=== PATIENT | male | born 1995 | race Two or more races ===

== ENCOUNTER 2021-05-17 23:51 | Emergency (ER) | payer OTHER ==
[~2021-05-17] VITALS: Ht 167.6 cm; Wt 58.1 kg
--- NOTE | 2021-05-18 00:22 | NUR ---
BIBS C/O MID EPIGASTRIC PAIN X1 YEAR +VOMITTING HX OF GERD. PATIENT ALERT AND ORIENTED X3. AMBULATORY WITH NON LABORED BREATHING. PT IN A GOWN ON MONITOR AWAITING MD AWAN.
[2021-05-18] MEDS ORDERED: MAG HYDROX/AL HYDROX/SIMETH 30 ML UDC ONE (00:30)
[2021-05-18] MEDS ORDERED: ONDANSETRON HCL/PF 4 MG/2 ML VIAL IVP ONE (00:30)
[2021-05-18] MEDS ORDERED: ONDANSETRON HCL/PF 4 MG/2 ML VIAL ONE (00:30)
[2021-05-18] MEDS ORDERED: LIDOCAINE VISCOUS 2% UD 15 ML UDC MM ONE (00:30)
[2021-05-18] MEDS ORDERED: LIDOCAINE VISCOUS 2% UD 15 ML UDC ONE (00:30)
[2021-05-18] MEDS ORDERED: MAG HYDROX/AL HYDROX/SIMETH 30 ML UDC PO ONE (00:30)
[2021-05-18] MEDS ORDERED: IV NS 0.9% 1,000 ML BAG IV ONE (00:30)
--- NOTE | 2021-05-18 00:35 | NUR ---
URINE COLLECTED AND SENT TO LAB
--- NOTE | 2021-05-18 00:41 | NUR ---
LINE ESTABLISHED AND BLOOD COLLECTED AND SENT TO LAB
[2021-05-18 00:44] LABS: BASOPHILS # (AUTO) 0.1 K/uL (0.0-0.2); BASOPHILS % (AUTO) 0.9 % (0.0-2.0); EOSINOPHILS % (AUTO) 4.6 % (0.0-6.0); HEMATOCRIT 47 % (39-51); HEMOGLOBIN 15.7 g/dL (13.5-17.5); LYMPHOCYTES # (AUTO) 1.7 K/uL (0.8-4.8); MEAN CORPUSCULAR HGB CONC 33 g/dl (31.0-36.0); MEAN CORPUSCULAR VOLUME 87 fL (80-96); MONOCYTES # (AUTO) 0.5 K/uL (0.1-1.30); MONOCYTES % (AUTO) 8.5 % (2.0-12.0); NEUTROPHILS # (AUTO) 3.1 K/uL (1.8-8.9); PLATELET COUNT (AUTO) 153 K/uL (150-450); RED BLOOD CELL COUNT(AUTO) 5.42 MIL/uL (4.5-6.0); WHITE BLOOD COUNT (AUTO) 5.6 K/uL (4.3-11.0)
--- NOTE | 2021-05-18 00:50 | NUR ---
PT GOING TO CT.
--- NOTE | 2021-05-18 00:50 | NUR ---
PT TAKEN FOR CT SCAN
[2021-05-18 01:02] LABS: CALCIUM, SERUM 8.4 mg/dL (8.5-10.1); POTASSIUM 3.7 mmol/L (3.5-5.1)
[2021-05-18] MEDS ORDERED: ONDA4TAB5 PO (01:56)
[2021-05-18 02:25] LABS: BILIRUBIN,DIRECT 0.2 mg/dL (0.0-0.2)
[2021-05-18 02:26] LABS: ALBUMIN 3.8 g/dL (3.4-5.0); TOTAL PROTEIN, SERUM 7.2 g/dL (6.4-8.2)
--- NOTE | 2021-05-18 02:51 | NUR ---
Patient discharged to home in stable condition. Written and verbal after care instructions given. Patient verbalizes understanding of instruction.
--- NOTE | 2021-05-18 02:51 | NUR ---
IV removed. Catheter intact and site benign. Pressure and 4x4 applied to site. No bleeding noted.
[2021-05-18 02:52] VITALS: BP 111/65
== END 2021-05-18 02:53 | disposition home or self-care (01) ==
LOC: ER 23:58
DX: K52.9 Noninfective gastroenteritis and colitis, unspecified (principal); K21.9 Gastro-esophageal reflux disease without esophagitis; I88.0 Nonspecific mesenteric lymphadenitis
CPT/HCPCS: 36415; 74176; 80048; 80076; 83690; 85025; 93005; 96361; 96374; 99285; J2405